=== PATIENT | female | born 1960 | race Caucasian/White ===

== ENCOUNTER 2017-05-30 13:46 | Inpatient (IN) | payer OTHER ==
[~2017-05-30 13:46] MED LIST: ISOVUE-370 76%-LOCM 1 ML ONE; Iopamidol 370 76% 50 ML VIAL FS ONE
[2017-05-30 14:48] LABS: Bilirubin Large (Negative); Blood, Urine Large (Negative); Clarity CLOUDY (Clear); Glucose, Urine (Dipstick) Negative (Negative); Leukocyte Small (Negative); Nitrite Negative (Negative); Protein, Urine (Dipstick) Trace mg/dL (Neg-Trace); Specific Gravity, Urine 1.016 (1.002-1.036); pH, Urine 6.5 (5.0-9.0)
[2017-05-30 14:53] LABS: Bacteria/HPF None Seen HPF (None Seen); Hyaline Casts/LPF 0-3 HYALINE CAST LPF (0-3 Hyaline); Pathc Cast-AUWi Flag 0.67 (0-2.49); RBC/HPF GREATER THAN 50-TNTC HPF (0-3); Squamous Epithelial 0-3 HPF (0-3)
[2017-05-30 14:59] LABS: #Lymphocytes 1.1 thou/uL (1.20-3.40); #Monocytes 0.5 thou/uL (0.11-0.59); #Neutrophils 7.3 thou/uL (1.40-6.50); %Basophils 0.2 % (0.0-1.0); %Eosinophils 0.2 % (0.0-10.0); %Lymphocytes 12.8 % (21.0-51.0); %Monocytes 5.5 % (0.0-10.0); %Neutrophils 81.4 % (42.0-75.0); Hemoglobin 15.1 g/dL (12.0-16.0); Mean Corpuscular HGB CONC 32.3 g/dL (32.0-36.0); Mean Corpuscular Hemoglobin 29.9 pg (27.0-31.0); Mean Corpuscular Volume 92.5 fl (81.0-99.0); Platelet Count 227 thou/uL (130-400); RBC Distribution Width 14.6 % (11.5-14.5); Red Blood Cell (RBC) Count 5.06 mill/uL (4.20-5.40); White Blood Cell (WBC) Count 8.9 thou/uL (4.8-10.8)
[2017-05-30 15:13] LABS: ALT (SGPT) 541 U/L (8-55); AST (SGOT) 334 U/L (5-34); Albumin 3.9 g/dL (3.5-5.0); Alkaline Phosphatase 259 U/L (40-150); Anion Gap 13 mmol/L (10-20); BUN (Urea Nitrogen) 8 mg/dL (9.8-20.1); Bilirubin, Total 7.7 mg/dL (0.2-1.2); Calc. Creatinine Clearance 0 mL/min (70-130); Calcium 9.9 mg/dL (7.8-10.44); Carbon Dioxide 28 mmol/L (22-29); Chloride 97 mmol/L (98-107); Estimated GFR-MDRD 89; Globulin 3.6 g/dL (2.4-3.5); Glucose 144 mg/dL (70-105); Potassium 3.7 mmol/L (3.5-5.1); Protein, Total 7.5 g/dL (6.0-8.3); Sodium 134 mmol/L (136-145)
[2017-05-30 15:28] LABS: Lipase 5466 U/L (8-78)
--- NOTE | 2017-05-30 17:45 | ULT ---
GALLBLADDER ULTRASOUND: 05/30/17 HISTORY: Right upper quadrant pain. Examination is limited due to body habitus. Real time imaging of the right upper quadrant shows an ec hogenic focus with shadowing within the gallbladder. There is also some minimal sludge. No gallbladde r wall thickening. The common duct is in the 5 to 6 mm range. Liver shows fatty change. Right kidney is normal in size and not obstructed. The pancreas is partiall y obscured. IMPRESSION: 1. Small gallstone also some minimal sludge within the gallbladder. 2. Fatty changes of the liver. POS: [facility]
[2017-05-30] MEDS ORDERED: Fentanyl 100 MCG/2 ML VIAL ONE ×2 (18:35→20:46)
[2017-05-30] MEDS ORDERED: Ondansetron HCl/PF 4 MG/2 ML Vial ONE ×2 (18:35→20:52)
[2017-05-30 18:50] LABS: INR-International Normal Ratio 0.9; Prothrombin Time 12.6 SEC (12.0-14.7)
[2017-05-30 18:51] LABS: PTT 28.1 SEC (22.9-36.1)
[2017-05-30 19:04] LABS: Acetaminophen Less than 6.0 mcg/mL (10.0-30.0)
[2017-05-30 19:26] LABS: HBCM Index 0.18 S/CO (0-0.79); HBSAg Index 0.16 S/CO (0-0.99); Hep A IgM AB Non-Reactive (NonReactive); Hep A IgM S/CO 0.08 S/CO (0-0.79); Hep B Surf Ag Non-Reactive S/CO (NonReactive); Hep C IgG Ab Non-Reactive (NonReactive); Hep C Index 0.12 S/CO (0-0.79); Hepatitis B Core IGM Abs Non-Reactive (NonReactive)
[2017-05-30] MEDS ORDERED: Guaifenesin DM 100-10/5 ML UDCUP PO PRN (20:14)
[2017-05-30] MEDS ORDERED: Promethazine HCl 25 MG/ML VIAL IM PRN (20:14)
[2017-05-30] MEDS ORDERED: Ondansetron HCl/PF 4 MG/2 ML Vial IVP PRN (20:14)
[2017-05-30] MEDS ORDERED: Dextrose 50% Abboject 50 ML SYRINGE SLOW IVP PRN (20:19)
[2017-05-30] MEDS ORDERED: Dextrose 5% in Water 1,000 ML IV PRN (20:19)
[2017-05-30] MEDS ORDERED: HumaLOG 300 UNITS/3 ML VIAL SC PRN (20:19)
[2017-05-30 20:36] LABS: Cardiac Risk 9.6 (Less than 4.5)
[2017-05-30] MEDS: Famotidine/PF 20 mg/2ml Vial SLOW IVP SCH (23:45)
--- NOTE | 2017-05-31 00:31 | HP ---
REASON FOR ADMISSION: Likely gallstone pancreatitis. HISTORY OF PRESENTING ILLNESS: Patient gives history of right upper quadrant abdominal pain from two weeks, this has been off and on colicky in nature. From yesterday, this got worse to the point, it was a constant pain and was lasting longer. She has been having loss of appetite and could not eat o r drink with dry heaving from yesterday. She got concerned that she is dehydrated, [facility]. On arrival, her labs done here shows elevated LFTs with total bilirubin of 7.7 and her lipase of 5466. PAST MEDICAL AND SURGICAL HISTORY: Patient apparently is a prediabetic, does not take any medication s. She has high cholesterol and does not take any medicines for that. She has had a recent incision and drainage of a cyst on the scalp done last Monday. CURRENT MEDICATIONS: Keflex 500 mg three times daily, which was given after I&D of her scalp cyst. ALLERGIES: To CONTROL PILLS. PERSONAL HISTORY: Quit smoking more than 10 years ago, prior to which has smoked half pack a day for nearly 10 years. Does not abuse alcohol or drugs. She is an procurement accountant. FAMILY HISTORY: Mom of ovarian cancer at the age of 68 years. Father is alive and is 89 years old now. REVIEW OF SYSTEMS: The following complete review of systems was negative, unless otherwise mentioned in the HPI or below: Constitutional: Weight loss or gain, ability to conduct usual activities. Skin: Rash, itching. Eyes: Double vision, pain. ENT/Mouth: Nose bleeding, neck stiffness, pain, tenderness. Cardiovascular: Palpitations, dyspnea on exertion, orthopnea. Respiratory: Shortness of breath, wheezing, cough, hemoptysis, fever or night sweats. Gastrointestinal: Poor appetite, abdominal pain, heartburn, nausea, vomiting, constipation, or diarr hea. Genitourinary: Urgency, frequency, dysuria, nocturia. Musculoskeletal: Pain, swelling. Neurologic/Psychiatric: Anxiety, depression. Allergy/Immunologic: Skin rash, bleeding tendency. PHYSICAL EXAMINATION: GENERAL: Patient is a 57-year-old female who is currently not in any acute distress. VITAL SIGNS: Blood pressure 172/80 on arrival, pulse 84 per minute, respiratory rate 18 per minute, temperature was 99.1 degrees Fahrenheit, saturating 94% on room air. NECK: Supple, no elevated JVD. HEENT: Extraocular muscles intact. Pupils reacting to light. Oral cavity, mucous membranes are [address] st. No exudates or congestion. CARDIOVASCULAR SYSTEM: S1, S2 heard. Regular rhythm. RESPIRATORY SYSTEM: Air entry 1+ bilateral. No rales or rhonchi. ABDOMEN: There is mild tenderness on deep palpation in the epigastric area. No rebound or guarding. Bowel sounds are heard. EXTREMITIES: No peripheral edema or calf tenderness. VASCULAR SYSTEM: Peripheral pulses 1+ bilateral. No ischemic ulcerations or gangrene. CENTRAL NERVOUS SYSTEM: No gross focal deficits seen. Patient is alert, awake, oriented well. PSYCHIATRIC: Patient's mood is euthymic. No hallucinations or delusions. LABORATORY AND X-RAY FINDINGS: Sodium 134, serum bicarbonate 28, BUN 8, creatinine 0.6, glucose 144. Total bilirubin 7.7, direct bilirubin is 5.5, AST 334, ALT 541, alkaline phosphatase 259, albumin i s 3.9. Lipase is 5466. Acute hepatitis panel was negative. PT/INR 12 and 0.9, PTT 28. White count of 8, H&H 15 and 46, platelet count 227, MCV is 92 with 81% neutrophils. Ultrasound of the abdomen done shows small gallstone with minimal sludge within the gallbladder, fatty change in the liver, com mon duct was 5-6 mm range. The pancreas was partially obscured. CLINICAL IMPRESSION AND PLAN: Patient will be admitted to medical floor for likely gallstone pancrea titis. Her lipase is elevated more than 5000. She will be kept n.p.o. We will aggressively hydrate her with normal saline at 150 mL per hour. She will be on Demerol p.r.n. for pain. We will obtain a CT of the abdomen and pelvis with and without contrast. I have spoken to Dr. Jorje Hernández for alyce roenterology and Dr. Messer who is information technology data analyst for general surgery will be consulted. We will obtain a lipid profile stat to see for triglyceride level. She will also be on diabetes, hyperglycemia protoc ol with mild dose of Humalog coverage q.6 hourly. We will follow up on the CAT scan and continue to closely monitor for medical floor.
--- NOTE | 2017-05-31 00:33 | CT ---
EXAM ABDOMEN CT WITH CONTRAST PELVIC CT WITH CONTRAST 05/30/17 HISTORY: Pancreatitis. Abdominal pain. Nausea. Vomiting. Cholelithiasis. COMPARISON: None. TECHNIQUE: Abdomen and pelvic CT performed with IV contrast. Enteric contrast was also administered. Coronal ref ormatted images are submitted for interpretation. FINDINGS: ABDOMEN CT: Lung bases are clear. Heart size is normal. No significant pericardial fluid. The descending thoracic aorta and abdominal aorta are of normal caliber. No periaortic fat stranding. Symmetric attenuation of the psoas muscle. Intra and extrahepatic portal vein is patent. There is prominence of the intrahepatic biliary system. There is no evidence of cholecystitis. There is evidence of choledocholithiasis. The common bile duct is markedly dilated. There is hyperdensity w ithin the lumen of the common bile duct suggesting multifocal gallstones. Common bile duct is 1.2 cm. The spleen and adrenal glands have appropriate enhancement. Symmetric enhancement of the kidneys. Cameron aterally, no obstructive uropathy. Minimal peripancreatic fat stranding at the head and the proximal pancreatic body. Correlate clinical ly for pancreatitis. No evidence of a cyst, pseudocyst or abscess. No significant pancreatic necrosis . No gastrohepatic, retrocrural or periportal lymphadenopathy. No mesenteric mass, lymphadenopathy, free air or free fluid. There is a ventral abdominal wall hernia containing mesenteric fat. There is also dehiscence of the anterior abdominal wall. No evidence of bowel obstruction. Mild inflammatory change involving the second portion of the duoden um, likely reactive secondary to choledocholithiasis. Ileocecal junction is normal. Normal caliber ap pendix. Scattered diverticulosis of the colon. No diverticulitis. PELVIC CT: No mass, lymphadenopathy, free air of free fluid. Urinary bladder and uterus/adnexal structures are u nremarkable. No lytic or blastic lesions of the osseous structure. IMPRESSION: 1. Cholelithiasis. 2. Dilatation of the common bile duct secondary to extensive choledocholithiasis. GI consultatio n is recommended for possible ERCP and removal of common bile duct stones. 3. Minimal inflammatory change of the proximal pancreas. Correlate clinically for pancreatitis. Reactive changes to the adjacent duodenum are noted. POS: [facility]
[2017-05-31] MEDS ORDERED: Labetalol HCl 100 MG/20 ML VIAL SLOW IVP PRN (01:19)
[2017-05-31] MEDS: Sodium Chloride 0.9% 1,000 ML IV SCH ×5 (01:50→20:15)
[2017-05-31] MEDS: Meperidine HCl/PF 25 MG/ML VIAL SLOW IVP PRN ×2 (02:14→10:27)
[2017-05-31 06:52] LABS: ALT (SGPT) 487 U/L (8-55); AST (SGOT) 305 U/L (5-34); Albumin 3.5 g/dL (3.5-5.0); Alkaline Phosphatase 239 U/L (40-150); Anion Gap 13 mmol/L (10-20); BUN (Urea Nitrogen) 7 mg/dL (9.8-20.1); Bilirubin, Direct 6.1 mg/dL (0.1-0.3); Bilirubin, Total 8.1 mg/dL (0.2-1.2); Calc. Creatinine Clearance 0 mL/min (70-130); Calcium 9.3 mg/dL (7.8-10.44); Carbon Dioxide 24 mmol/L (22-29); Chloride 102 mmol/L (98-107); Estimated GFR-MDRD Greater than 90; Glucose 135 mg/dL (70-105); Protein, Total 6.7 g/dL (6.0-8.3); Sodium 135 mmol/L (136-145)
[2017-05-31 06:53] LABS: Hemoglobin 13.7 g/dL (12.0-16.0); Mean Corpuscular HGB CONC 32.4 g/dL (32.0-36.0); Mean Corpuscular Hemoglobin 30.2 pg (27.0-31.0); Mean Corpuscular Volume 93.2 fl (81.0-99.0); Mean Platelet Volume 8.1 fL (7.4-10.4); Platelet Count 195 thou/uL (130-400); RBC Distribution Width 14.6 % (11.5-14.5); Red Blood Cell (RBC) Count 4.54 mill/uL (4.20-5.40); White Blood Cell (WBC) Count 9.4 thou/uL (4.8-10.8)
[2017-05-31 07:05] LABS: Lipase 2715 U/L (8-78)
[2017-05-31 07:24] LABS: Band 8 % (5-11); Lymphocytes 10 % (21-51); MDiff Complete? YES; Monocytes 3 % (0-10); Neutrophil 77 % (42-75); Reactive Lymphocytes 2 % (0-10)
[2017-05-31] MEDS: Amlodipine 10 MG TAB PO SCH (08:54)
[2017-05-31] MEDS: Metoprolol Tartrate 25 MG TAB PO SCH ×2 (08:55→20:52)
[2017-05-31] MEDS: Enoxaparin Sodium 40 MG/0.4 ML SYRINGE SC SCH (08:55)
[2017-05-31] MEDS: Famotidine/PF 20 mg/2ml Vial SLOW IVP SCH ×2 (08:55→20:52)
--- NOTE | 2017-05-31 12:01 | PDOC.PN ---
- Subjective Encounter Start Date: 05/31/17 Encounter Start Time: 10:25 Subjective: has off and on epigastric pain, no nausea -: no sob - Objective Resuscitation Status: Resuscitation Status FULL:Full Resuscitation MAR Reviewed: Yes Vital Signs & Weight: Vital Signs (12 hours) Temp Pulse Resp BP BP Pulse Ox 05/31/17 08:57 99.0 F 113 H 20 130/62 97 05/31/17 08:54 113 H 130/62 05/31/17 08:00 99.0 F 113 H 20 05/31/17 04:00 89 19 170/86 H 05/31/17 01:46 97 190/88 H 05/31/17 00:00 98.8 F 99 19 190/88 H I&O: 05/30/17 05/31/17 06/01/17 06:59 06:59 06:59 Intake Total 1350 Output Total 500 Balance 850 Result Diagrams: 05/31/17 06:08 05/31/17 06:08 Additional Labs: Accuchecks 05/31/17 05/30/17 06:43 23:51 POC Glucose 131 H 118 H Phys Exam - Physical Examination HEENT: PERRLA, moist MMs Neck: no JVD, supple Respiratory: no wheezing, no rales Cardiovascular: RRR, no significant murmur Gastrointestinal: soft, no distention, positive bowel sounds mild tenderness in epigastric area, no rebound or rigidity Musculoskeletal: no edema, pulses present Neurological: non-focal, moves all 4 limbs Psychiatric: normal affect, A&O x 3 Dx/Plan (1) Choledocholithiasis with acute cholecystitis Code(s): K80.42 - CALCULUS OF BILE DUCT W ACUTE CHOLECYSTITIS W/O OBSTRUCTION Status: Acute (2) Gallstone pancreatitis Code(s): K85.10 - BILIARY ACUTE PANCREATITIS WITHOUT NECROSIS OR INFECTION Status: Acute (3) Obesity Code(s): E66.9 - OBESITY, UNSPECIFIED Status: Chronic (4) HTN (hypertension) Code(s): I10 - ESSENTIAL (PRIMARY) HYPERTENSION Status: Chronic Qualifiers: Hypertension type: essential hypertension Qualified Code(s): I10 - Essential (primary) hypertension (5) Dyslipidemia Code(s): E78.5 - HYPERLIPIDEMIA, UNSPECIFIED Status: Acute - Plan for ERCP today, iv fluids at 150mls/hr, demerol prn -: lap hannah when stable, ?am -: add lipitor and fish oil -: lopressor and norvasc for htn (likely due to pain and anxiety) -: to amb in room and hallway * . Review of Systems - Medications/Allergies Allergies/Adverse Reactions: Allergies Allergy/AdvReac Type Severity Reaction Status Date / Time control Allergy Uncoded 05/30/17 20:42 Medications: Current Medications Acetaminophen (Tylenol) 650 mg PO Q4H PRN PRN Reason: Headache/Fever or Pain Amlodipine Besylate (Norvasc) 10 mg PO DAILY [facility] Last Admin: 05/31/17 08:54 Dose: 10 mg Dextrose/Water (Dextrose 50%) 25 gm SLOW IVP PRN PRN PRN Reason: Hypoglycemia Enoxaparin Sodium (Lovenox) 40 mg SC 0900 [facility] Last Admin: 05/31/17 08:55 Dose: 40 mg Famotidine (Pepcid) 20 mg SLOW IVP Q12HR [facility] Last Admin: 05/31/17 08:55 Dose: 20 mg Glucagon (Glucagon) 1 mg IM PRN PRN PRN Reason: Hypoglycemia Guaifenesin/Dextromethorphan (Robitussin Dm) 15 ml PO Q4H PRN PRN Reason: Cough Sodium Chloride (Normal Saline 0.9%) 1,000 mls @ 150 mls/hr IV .Q6H40M [facility] Last Admin: 05/31/17 10:26 Dose: Not Given Dextrose/Water (D5w) 1,000 mls @ 0 mls/hr IV .Q0M PRN; As Directed PRN Reason: Hypoglycemia Insulin Human Lispro (Humalog) 0 units SC .MILD SLIDING SCALE PRN PRN Reason: Mild Correctional Scale Labetalol HCl (Normodyne) 10 mg SLOW IVP Q4H PRN PRN Reason: SBP Greater Than 170 Last Admin: 05/31/17 01:46 Dose: 10 mg Meperidine HCl (Demerol) 25 mg SLOW IVP Q3H PRN PRN Reason: Severe Pain (7-10) Last Admin: 05/31/17 10:27 Dose: 25 mg Metoprolol Tartrate (Lopressor) 25 mg PO BID [facility] Last Admin: 05/31/17 08:55 Dose: Not Given Ondansetron HCl (Zofran) 4 mg IVP Q6H PRN PRN Reason: Nausea/Vomiting Last Admin: 05/31/17 10:27 Dose: 4 mg Promethazine HCl (Phenergan) 25 mg IM Q4H PRN PRN Reason: Nausea/Vomiting Sodium Chloride (Flush - Normal Saline) 10 ml IVF Q12HR [facility] Last Admin: 05/31/17 08:55 Dose: Not Given Sodium Chloride (Flush - Normal Saline) 10 ml IVF PRN PRN PRN Reason: Saline Flush
[2017-05-31 12:06] VITALS: BMI 58.0
[2017-05-31] MEDS ORDERED: Iothalamate Meglumine 60% 50 ML VIAL FS ONE (12:39)
[2017-05-31] MEDS ORDERED: Midazolam HCl 2 mg/2 ml Vial ONE (12:45)
[2017-05-31] MEDS ORDERED: Fentanyl 100 MCG/2 ML VIAL ONE (12:45)
[2017-05-31] MEDS ORDERED: PHENYLEPHRINE-NS 100 MCG/ML 10 ML SYRINGE ONE (12:53)
[2017-05-31] MEDS ORDERED: Succinylcholine Chloride 20 MG/ML 10 ml SYRINGE FS ONE (12:53)
[2017-05-31] MEDS ORDERED: Lidocaine 1% PF 5 ML VIAL ONE (12:53)
[2017-05-31] MEDS ORDERED: PROPOFOL 200 MG/20 ML VIAL ONE (12:53)
[2017-05-31] MEDS ORDERED: Ondansetron HCl/PF 4 MG/2 ML Vial ONE (12:53)
[2017-05-31] MEDS ORDERED: Indomethacin 50 MG SUPP ONE (13:14)
[2017-05-31] MEDS ORDERED: Indomethacin 50 MG SUPP PR SCH (13:15)
--- NOTE | 2017-05-31 13:29 | CON ---
DATE OF CONSULTATION: 05/31/2017 REASON FOR CONSULTATION: Choledocholithiasis. CONSULTING PHYSICIAN: Beckie Hanna M.D. HISTORY OF PRESENT ILLNESS: The patient is a 57-year-old female with past medical history of hyperlipidemia and impaired fasting glucose, presenting with complaints of right upper quadrant abdominal pain. She states that over the last 2 weeks she had the acute onset of right upper quadrant abdominal pain that has been constant in nature with waxing and waning severity. However, over the last 24-48 hours, she has had a sudden increase in this pain with radiation of the pain to the mid epigastric and right lower quadrant. Associated with this pain was increased nausea, vomiting with nonbloody emesis, anorexia and yellowing of her skin and her eyes. This prompted her to seek medical attention at [facility] where upon routine lab evaluation, she was noted to have significantly elevated LFTs including a total bilirubin of 7.7 and a lipase of 5466. Currently, she says that her abdominal pain is better, but still present. She denies any further vomiting, but does have mild nausea at the current time. REVIEW OF SYSTEMS: A 12-category review of systems was obtained with all responses negative except for the pertinent positives as listed in the HPI. PAST MEDICAL HISTORY: Hyperlipidemia and impaired fasting glucose. PAST SURGICAL HISTORY: Recent I&D of scalp cyst done in 04/2017. SOCIAL HISTORY: Denies any tobacco, alcohol or illicit drug use. FAMILY HISTORY: Ovarian cancer (mother diagnosed at the age of 68), no GI malignancy. ALLERGIES: CONTROL PILLS (unknown reaction). PHYSICAL EXAMINATION: VITAL SIGNS: Temperature 99, pulse 113, blood pressure 130/62, respiratory rate 20 and satting 97% on room air. GENERAL: Patient in no acute distress. Alert and oriented x4. HEENT: Pupils equal, round and reactive to light. Extraocular movements intact. NECK: Supple. No JVD noted. CARDIOVASCULAR: Tachycardic rate with normal rhythm. No discernible murmurs, gallops or rubs. RESPIRATORY: Clear to auscultation bilaterally with no discernible wheezes or rales. ABDOMEN: Normoactive bowel sounds, soft and nondistended. Tenderness to palpation in the midepigastric right upper quadrant and right lower quadrant regions upon both light and deep palpation. No hepatosplenomegaly noted. EXTREMITIES: No cyanosis, clubbing or edema. LABORATORY STUDIES: CBC with a white blood cell count of 9.4, hemoglobin 13.7, hematocrit 42.3 and platelets 195. Chemistry with a sodium of 135, potassium 4 , chloride 102, carbon dioxide 24, BUN 7, creatinine 0.61, glucose 135, AST 305 , ALT 487, alkaline phosphatase 237, total bilirubin 8.1, lipase 2715, albumin 3.5 and INR 0.9. Acute hepatitis panel negative. IMAGING STUDIES: Right upper quadrant ultrasound obtained on 05/30/2017 showing an echogenic focus with shadowing within the gallbladder consistent with small gallstone with minimal sludge. No gallbladder wall thickening. The common bile duct was 5-[address] abdomen and pelvis obtained on 2017 showed choledocholithiasis with multifocal gallstones within the common bile duct. Common bile duct was dilated to approximately 1.2 cm in diameter. Minimal peripancreatic fat stranding was noted along with a fat containing ventral hernia. ASSESSMENT AND PLAN: The patient is a 57-year-old female with past medical history of hyperlipidemia, impaired fasting glucose and morbid obesity presenting with cholelithiasis and choledocholithiasis. Choledocholithiasis The patient is presenting with a 2-week history of right upper quadrant/ midepigastric abdominal pain that has been constant in nature with waxing and waning severity. The abdominal pain was associated with increased nausea and vomiting with nonbloody emesis. Upon evaluation in the [place] [facility], she was noted to have significantly elevated liver function tests and lipase concerning for an obstructive process at the ampulla. Imaging with RUQ ultrasound showed cholelithiasis without significant dilation of the CBD, but follow up with CT abdomen and pelvis showed dilation of the common bile duct at 1.2 cm with multiple filling defects consistent with choledocholithiasis. RECOMMENDATIONS: 1. We will plan for urgent ERCP today for stone extraction. 2. We will place patient on Zosyn as part of antibiotic prophylaxis related to possible ascending cholangitis. 3. Will plan for rectal indomethacin prior to ERCP for pancreatitis prophylaxis. 3. Would consult General Surgery for evaluation related to cholecystectomy that will be needed after ERCP and stone extraction. ERIBERTO
[2017-05-31] MEDS ORDERED: HYDROmorphone 2 MG/ML VIAL SLOW IVP PRN (13:55)
[2017-05-31] MEDS ORDERED: Morphine Sulfate 2 MG/ML SYRINGE SLOW IVP PRN (13:55)
[2017-05-31] MEDS ORDERED: Promethazine HCl 25 MG/ML VIAL SLOW IVP PRN (13:55)
[2017-05-31] MEDS ORDERED: Meperidine HCl/PF 25 MG/ML VIAL SLOW IVP PRN (13:55)
--- NOTE | 2017-05-31 16:02 | OP ---
DATE OF PROCEDURE: 05/31/2017 DESCRIPTION OF PROCEDURE: Endoscopic retrograde cholangiopancreatography with balloon sweep and stone extraction. INDICATION: Choledocholithiasis. TOOL DESIGNER APPRENTICE ENDOSCOPIST: Dr. Neville Patel MD DESCRIPTION OF PROCEDURE: After the risks, and benefits were explained to the patient including risks of bleeding, infection, perforation, reactions to anesthesia and/or pain and pancreatitis, informed consent was obtained. The patient was then taken to the endoscopy suite with general anesthesia induced by anesthesiologist. The standard duodenoscope was then advanced through the mouth with intubation of the esophagus, stomach, and duodenum with the findings listed below. The patient tolerated the procedure well without any periprocedural complications. FINDINGS: Limited evaluation of the esophagus and stomach were performed, with no gross abnormalities within the body of the stomach or esophagus. DUODENUM: Upon entry into the duodenum, the ampulla was located. The ampulla was generous and bulbous in size with no active bleeding or purulence coming from the orifice itself. Using a sphincterotome, the ampulla was then cannulated with adequate visualization of the common bile duct due to instillation of contrast under fluoroscopy. After confirmation of the position was achieved, a guidewire was then placed to provide stability within the location itself. Using the sphincterotome, a generous sphincterotomy was then performed with no bleeding noted during or after this maneuver. The sphincterotome was then removed and exchanged for a 15 mm balloon which was then advanced into the common bile duct. Using occlusion cholangiogram, there were no noted stones seen within the duct itself under fluoroscopy and the common bile duct itself measured approximately 1-1.5 cm in size. Multiple balloon sweeps were then performed with no visualized stones retrieved from the common bile duct. There were also multiple stones noted within the cystic duct upon occlusion cholangiogram. The balloon was then removed along with guidewire , with guzmán bile seen emanating from the ampulla itself. All equipment was then removed with the patient then transferred to recovery area in satisfactory condition. IMPRESSION: 1. Increased dilation of the common bile duct with multiple balloon sweeps, negative for discernible stone. 2. Multiple stones were seen within the cystic duct which could exhibit a Mirizzi effect on the common bile duct. RECOMMENDATIONS: 1. Follow with primary inpatient team. 2. Would trend hemoglobin and hematocrit and transfuse as necessary to maintain hemoglobin and hematocrit of 7/21. 3. Would continue antibiotics (Zosyn) for prophylaxis against cholangitis. 4. Would continue to monitor for signs of worsening of pancreatitis/post-ERCP pancreatitis 5. Would continue IV fluid administration as you are doing given the pancreatitis noted upon admission. 6. Would defer to General Surgery Service for definitive cholecystectomy with attention made to the cystic duct and stones contained. ERIBERTO
--- NOTE | 2017-05-31 16:17 | CON ---
DATE OF CONSULTATION: 05/31/2017 REASON FOR CONSULTATION: Abdominal pain. HISTORY OF PRESENT ILLNESS: Ms. Dumont is a 57-year-old woman with a 2-3 week history of right upper quadrant and epigastric pain, nausea and vomiting. This has been episodic, but worsening and for the day or two before she came into the hospital, she was unable to keep anything down, even water. She states that about 2 weeks ago, she noticed that there was a slight yellow tinge to her eyes and that has persisted and her urine has also been very dark in color. She denies any fevers or chills. She states that the pain is much better since being admitted to the hospital. PAST MEDICAL HISTORY: Prediabetes. She states that her blood pressure was high in the emergency room, but usually runs low. Gallstones diagnosed in 2002 for which the patient declined surgery and decided on herbal supplements. PAST SURGICAL HISTORY: None. FAMILY HISTORY: Ovarian cancer in her mother who of this at 68 years of age and various types of cancer on her father's side and a maternal aunt which she thinks was cervical cancer. OUTPATIENT MEDICATIONS: None chronic. Patient was recently started on Keflex for a scalp cyst, which was I&D'd. ALLERGIES: Adverse drug reaction to [employer]. REVIEW OF SYSTEMS: Ten system review of systems is negative except per HPI. SOCIAL HISTORY: She is a former smoker who quit over a decade ago. Does not drink to excess or use illicit drugs. INPATIENT MEDICATIONS: Include amlodipine, Lovenox, Pepcid, sliding scale insulin, metoprolol, and multiple PRNs. PHYSICAL EXAMINATION: VITAL SIGNS: T-max 99.6, T-current 99.0, heart rate has ranged from 89-113, respirations 20, 97% saturated on room air, blood pressure 130/62, earlier was as high as 198/88. GENERAL: Reveals a morbidly obese woman, in no acute distress. She is slightly icteric and has a sallow cast to her skin. HEENT: Unremarkable. NECK: Supple, without lymphadenopathy or thyroid nodules. HEART: Regular in its rate and rhythm without murmurs, rubs or gallops. LUNGS: Clear to auscultation bilaterally. She denies pain with deep inspiration. CLINICAL BREAST: No palpable dominant masses bilaterally, although she has ectopic tissue in the lateral breast bilaterally, which is symmetric. No skin changes, nipple discharge or axillary lymphadenopathy. ABDOMEN: Soft and nondistended. She has reducible umbilical hernia. She has mild tenderness in the epigastric area without rigidity, rebound or guarding. No palpable masses or hernias. EXTREMITIES: Warm and well perfused without edema. NEUROLOGIC: No focal deficits. PSYCHIATRIC: Alert, oriented, and appropriate. LABORATORY DATA AND IMAGING: White count is normal at 9.4. She does not have any anemia, platelets are 195. Electrolytes are unremarkable, but LFTs are diffusely elevated. Total bilirubin is 8.1 with 86.1 direct component. AST and ALT are 305 and 487 and alkaline phosphatase is 239. Her lipase is 2715, which is down from 6466 at admission. Triglycerides are normal at 111, although her cholesterol is high at 421, blood glucoses have ranged from 118- 144. Gallbladder ultrasound and abdominal CT images are reviewed and I agree with the written report. The patient has some stones in her gallbladder and her common bile duct is dilated with calcified stones visible on the CAT scan. The head of her pancreas is mildly inflamed as well. ASSESSMENT: Gallstone pancreatitis and choledocholithiasis. Gastroenterology has been consulted and I anticipate that they will perform ERCP. Once she has recovered from this and her pancreatitis continues to resolve, we will plan on laparoscopic cholecystectomy. The procedure of laparoscopic cholecystectomy and its inherent risks were discussed in detail with the patient. These risks include but are not limited to bleeding, infection, risks of anesthesia, damage to nearby structures including bile duct, need for open operation or other procedures. She understands and accepts these risks and wishes to proceed. She has an umbilical hernia. This can be repaired primarily with sutures or with mesh. The relative pros and cons of each approach were discussed with the patient and she declines mesh placement, stating that she wants to keep things as natural as possible. She does understand that she is at extremely high risk for recurrence due to her obesity. In addition, the patient is at potentially elevated risk for breast cancer, given her family history of ovarian cancer. She does not really have a lot of details of other family members as her father is an only child. Her father does not have any sisters and she is uncertain what type of cancer her maternal aunt had, although she thinks it was cervical and says she was treated with radiation. I offered to refer her to a genetic counselor and she is willing to do that; however, she steadfastly refuses to be scheduled for a mammogram, which I strongly recommended. She does not have a doctor whom she sees on a regular basis and I did encourage her to at least establish a primary care physician for yearly physical examinations and breast exam and she is open to that suggestion. ERIBERTO
[2017-05-31] MEDS: Piperacillin/Tazobactam 4.5 GM in Sodium Chloride 0.9% 100 ML IVPB SCH ×2 (17:30→23:14)
[2017-05-31] MEDS: Fish Oil 1,000 MG CAP PO SCH (20:52)
[2017-05-31] MEDS: Atorvastatin Calcium 20 MG TAB PO SCH ×2 (20:52→21:09)
[2017-06-01] MEDS: Sodium Chloride 0.9% 1,000 ML IV SCH ×3 (03:30→21:29)
[2017-06-01] MEDS: Piperacillin/Tazobactam 4.5 GM in Sodium Chloride 0.9% 100 ML IVPB SCH ×3 (05:58→21:35)
[2017-06-01 08:01] LABS: #Basophils 0.1 thou/uL (0.0-0.2); #Eosinphils 0.1 thou/uL (0.0-0.7); #Lymphocytes 1.7 thou/uL (1.20-3.40); #Monocytes 0.5 thou/uL (0.11-0.59); %Basophils 0.7 % (0.0-1.0); %Eosinophils 0.6 % (0.0-10.0); %Lymphocytes 18.4 % (21.0-51.0); %Monocytes 5.7 % (0.0-10.0); %Neutrophils 74.6 % (42.0-75.0); Hemoglobin 12.7 g/dL (12.0-16.0); Mean Corpuscular HGB CONC 32.9 g/dL (32.0-36.0); Mean Corpuscular Hemoglobin 31.3 pg (27.0-31.0); Mean Corpuscular Volume 95.1 fl (81.0-99.0); Mean Platelet Volume 8.2 fL (7.4-10.4); Platelet Count 165 thou/uL (130-400); RBC Distribution Width 14.6 % (11.5-14.5); Red Blood Cell (RBC) Count 4.06 mill/uL (4.20-5.40); White Blood Cell (WBC) Count 9.4 thou/uL (4.8-10.8)
[2017-06-01 08:23] LABS: ALT (SGPT) 359 U/L (8-55); AST (SGOT) 162 U/L (5-34); Albumin 3.3 g/dL (3.5-5.0); Alkaline Phosphatase 194 U/L (40-150); Anion Gap 12 mmol/L (10-20); BUN (Urea Nitrogen) 11 mg/dL (9.8-20.1); Bilirubin, Total 3.2 mg/dL (0.2-1.2); Calc. Creatinine Clearance 207 mL/min (70-130); Calcium 8.8 mg/dL (7.8-10.44); Carbon Dioxide 24 mmol/L (22-29); Chloride 107 mmol/L (98-107); Estimated GFR-MDRD Greater than 90; Globulin 2.9 g/dL (2.4-3.5); Glucose 109 mg/dL (70-105); Lipase 140 U/L (8-78); Protein, Total 6.2 g/dL (6.0-8.3); Sodium 139 mmol/L (136-145)
[2017-06-01] MEDS: Famotidine/PF 20 mg/2ml Vial SLOW IVP SCH ×2 (09:03→21:28)
[2017-06-01] MEDS: Amlodipine 10 MG TAB PO SCH (10:57)
[2017-06-01] MEDS: Enoxaparin Sodium 40 MG/0.4 ML SYRINGE SC SCH (10:58)
[2017-06-01] MEDS: Metoprolol Tartrate 25 MG TAB PO SCH ×2 (10:59→21:35)
--- NOTE | 2017-06-01 11:56 | PDOC.PN ---
- Subjective Encounter Start Date: 06/01/17 Encounter Start Time: 08:55 Subjective: no abd pain, has some throat pain from intubation yesterday - Objective Resuscitation Status: Resuscitation Status FULL:Full Resuscitation MAR Reviewed: Yes Vital Signs & Weight: Vital Signs (12 hours) Temp Pulse Resp BP Pulse Ox 06/01/17 11:30 98.8 F 82 20 129/61 91 L 06/01/17 10:57 79 06/01/17 08:20 98.7 F 79 20 93 L 06/01/17 07:30 98.7 F 79 20 125/60 93 L Weight Admit Weight 307 lb Weight 307 lb I&O: 05/31/17 06/01/17 06/02/17 06:59 06:59 06:59 Intake Total 1350 Output Total 500 Balance 850 Result Diagrams: 06/01/17 07:34 06/01/17 07:34 Additional Labs: Accuchecks 06/01/17 05/31/17 05/31/17 06:01 23:31 12:26 POC Glucose 113 H 114 H 119 H Phys Exam - Physical Examination HEENT: PERRLA, moist MMs Neck: no JVD, supple Respiratory: no wheezing, no rales Cardiovascular: RRR, no significant murmur Gastrointestinal: soft, non-tender, no distention, positive bowel sounds Musculoskeletal: no edema, pulses present Neurological: non-focal, moves all 4 limbs Psychiatric: A&O x 3 Dx/Plan (1) Choledocholithiasis with acute cholecystitis Code(s): K80.42 - CALCULUS OF BILE DUCT W ACUTE CHOLECYSTITIS W/O OBSTRUCTION Status: Acute Comment: s/p ERCP with extraction and sphincterotomy 05/31/2017 (2) Gallstone pancreatitis Code(s): K85.10 - BILIARY ACUTE PANCREATITIS WITHOUT NECROSIS OR INFECTION Status: Acute (3) Obesity Code(s): E66.9 - OBESITY, UNSPECIFIED Status: Chronic (4) HTN (hypertension) Code(s): I10 - ESSENTIAL (PRIMARY) HYPERTENSION Status: Chronic Qualifiers: Hypertension type: essential hypertension Qualified Code(s): I10 - Essential (primary) hypertension (5) Dyslipidemia Code(s): E78.5 - HYPERLIPIDEMIA, UNSPECIFIED Status: Acute - Plan lap hannah per gen surgery advice -: lft's and lipase is coming down to baseline -: gentle iv hydration -: zosyn, lipitor, fish oil and small dose lopressor -: htn and dm is stable * . Review of Systems - Medications/Allergies Allergies/Adverse Reactions: Allergies Allergy/AdvReac Type Severity Reaction Status Date / Time control Allergy Uncoded 05/30/17 20:42 Medications: Current Medications Acetaminophen (Tylenol) 650 mg PO Q4H PRN PRN Reason: Headache/Fever or Pain Amlodipine Besylate (Norvasc) 10 mg PO DAILY [facility] Last Admin: 06/01/17 10:57 Dose: Not Given Atorvastatin Calcium (Lipitor) 20 mg PO HS [facility] Last Admin: 05/31/17 21:09 Dose: Not Given Dextrose/Water (Dextrose 50%) 25 gm SLOW IVP PRN PRN PRN Reason: Hypoglycemia Enoxaparin Sodium (Lovenox) 40 mg SC 0900 [facility] Last Admin: 06/01/17 10:58 Dose: Not Given Famotidine (Pepcid) 20 mg SLOW IVP Q12HR [facility] Last Admin: 06/01/17 09:03 Dose: 20 mg Fish Oil (Fish Oil) 1,000 mg PO [facility] Last Admin: 05/31/17 20:52 Dose: 1,000 mg Glucagon (Glucagon) 1 mg IM PRN PRN PRN Reason: Hypoglycemia Guaifenesin/Dextromethorphan (Robitussin Dm) 15 ml PO Q4H PRN PRN Reason: Cough Sodium Chloride (Normal Saline 0.9%) 1,000 mls @ 150 mls/hr IV .Q6H40M [facility] Last Admin: 06/01/17 10:53 Dose: 1,000 mls Dextrose/Water (D5w) 1,000 mls @ 0 mls/hr IV .Q0M PRN; As Directed PRN Reason: Hypoglycemia Piperacillin Sod/Tazobactam (Sod 4.5 gm/ Sodium Chloride) 100 mls @ 200 mls/hr IVPB Q8HR [facility] Last Admin: 06/01/17 05:58 Dose: 100 mls Insulin Human Lispro (Humalog) 0 units SC .MILD SLIDING SCALE PRN PRN Reason: Mild Correctional Scale Labetalol HCl (Normodyne) 10 mg SLOW IVP Q4H PRN PRN Reason: SBP Greater Than 170 Last Admin: 05/31/17 01:46 Dose: 10 mg Meperidine HCl (Demerol) 25 mg SLOW IVP Q3H PRN PRN Reason: Severe Pain (7-10) Last Admin: 05/31/17 10:27 Dose: 25 mg Metoprolol Tartrate (Lopressor) 25 mg PO BID [facility] Last Admin: 06/01/17 10:59 Dose: Not Given Ondansetron HCl (Zofran) 4 mg IVP Q6H PRN PRN Reason: Nausea/Vomiting Last Admin: 05/31/17 10:27 Dose: 4 mg Promethazine HCl (Phenergan) 25 mg IM Q4H PRN PRN Reason: Nausea/Vomiting Sodium Chloride (Flush - Normal Saline) 10 ml IVF Q12HR [facility] Last Admin: 06/01/17 10:54 Dose: Not Given Sodium Chloride (Flush - Normal Saline) 10 ml IVF PRN PRN PRN Reason: Saline Flush
--- NOTE | 2017-06-01 12:30 | PRG ---
DATE OF SERVICE: 06/01/2017 REASON FOR CONSULTATION: Choledocholithiasis, now status post ERCP. SUBJECTIVE: Overnight, the patient with improvement of her abdominal pain and resting comfortably th is morning. No further complaints of nausea, vomiting, fevers, chills, shortness of breath, diarrhea or constipation. She has been seen by the general surgeons at this time and is planned for a schedu le either today or tomorrow. MEDICATIONS: Reviewed. PHYSICAL EXAMINATION: VITAL SIGNS: Temperature 98.8, pulse 82, blood pressure 129/69, respiratory rate 20, satting 91% on room air. LABORATORY DATA: CBC with a white blood cell count of 9.4, hemoglobin 12.7, hematocrit 38.6, platele ts 165. Chemistry with sodium 139, potassium 4.0, chloride 107, carbon dioxide 24, BUN 11, creatinin e 0.65, glucose 109, AST 162, ALT 359, alkaline phosphatase 194, total bilirubin 3.2. ASSESSMENT AND PLAN: The patient is a 57-year-old female with past medical history of hyperlipidemia , impaired fasting glucose and morbid obesity, presenting with cholelithiasis and possible choledocho lithiasis. Choledocholithiasis. The patient presented with a 2 week history of right upper quadrant/midepigastric abdominal pain that had been constant in nature with waxing and waning severity. Upon evaluation by the [facility], she was noted to have significantly elevated liver function tests and lipase concerning for gallstone pancreatitis. Right upper quadrant ultrasound did not yield a diagnosis of choledocholithiasis, but a followup CT scan did show a common bile duct of 1.2 cm with multiple filling defects. ERCP perfor med on 05/31/2017 showed a dilated common bile duct, but with balloon sweep of the CBD did not yield any discernible stone. However, labs overnight appear much better in terms of her liver function ovi ts indicating that a possible obstruction has been relieved, albeit it was not seen on ERCP. RECOMMENDATIONS: 1. We will continue patient on Zosyn as part of antibiotic prophylaxis. 2. Would defer to General Surgery for cholecystectomy and possible intraoperative cholangiogram. We will sign off at this time. Please reconsult with any additional questions.
[2017-06-01] MEDS ORDERED: Lidocaine 1% PF 5 ML VIAL ONE (13:26)
[2017-06-01] MEDS ORDERED: ePHEDrine/0.9% NaCl/PF SYRINGE 50 mg/10 ml ONE (13:26)
[2017-06-01] MEDS ORDERED: Dexamethasone 20 MG/5 ML VIAL ONE (13:26)
[2017-06-01] MEDS ORDERED: Ketorolac Tromethamine 30 MG/ML VIAL ONE (13:26)
[2017-06-01] MEDS ORDERED: PROPOFOL 200 MG/20 ML VIAL ONE (13:26)
[2017-06-01] MEDS ORDERED: Glycopyrrolate 0.2 MG/ML 5 ML SYRINGE ONE (13:26)
[2017-06-01] MEDS ORDERED: Ondansetron HCl/PF 4 MG/2 ML Vial ONE (13:26)
[2017-06-01] MEDS ORDERED: PHENYLEPHRINE-NS 100 MCG/ML 10 ML SYRINGE ONE (13:26)
[2017-06-01] MEDS: Meperidine HCl/PF 25 MG/ML VIAL SLOW IVP PRN (13:36)
[2017-06-01] MEDS ORDERED: Iothalamate Meglumine 60% 50 ML VIAL FS ONE (13:38)
[2017-06-01] MEDS ORDERED: Bupivacaine 0.25% HCL 30 ML VIAL ONE (13:38)
--- NOTE | 2017-06-01 13:52 | PRG ---
DATE OF SERVICE: 06/01/2017 SUBJECTIVE: Ms. Dumont is a morbidly obese woman who was admitted on 05/30/2017 with acute cholecys titis with cholelithiasis and choledocholithiasis as well as acute gallstone pancreatitis. The patient underwent ERCP yesterday with sphincterotomy. No common bile duct stones were identified . Overnight, the patient has done well. Currently, denies any abdominal pain, nausea or vomiting. She denies any fevers or chills. I am seeing her today on behalf of Dr. Messer who previously consulted with the patient. OBJECTIVE: VITAL SIGNS: Include blood pressure 129/61, pulse 82, respiratory rate 20, maximum temperature in th e last 24 hours is 99.2 degrees Fahrenheit. Oxygen saturation is 91% on room air. HEENT: Reveals normocephalic and atraumatic. The pupils are equal, round, and reactive to light and accommodation. She has no sclerae icterus present. HEART: Reveals regular rate and rhythm, no murmurs or gallops auscultated. CHEST: Clear to auscultation bilaterally. Her breathing is regular and unlabored. ABDOMEN: Soft and obese. She has a reducible umbilical hernia defect present. She has no gross darwin ound tenderness present. Liver and spleen remain nonpalpable below costal margins. NEUROLOGIC: Reveals no focal deficits present. LABORATORY DATA: Today includes a CBC with 9400 white blood cells, hemoglobin and hematocrit stable at 12.7 and 38.6 respectively. Platelet count is 165,000. Metabolic profile: Sodium 139, potassium is 4.0, chloride is 107, bicarbonate is 24, BUN 11, creatin ine 0.65, glucose 109. AST and ALT stable at 162 and 359 respectively. Alkaline phosphatase is decr easing at 194. Serum lipase which was previously 2715 yesterday is now noted at 140. IMPRESSION: 1. Acute cholecystitis with cholelithiasis. 2. Resolved choledocholithiasis. 3. Resolved acute gallstone pancreatitis. 4. Non-incarcerated umbilical hernia. PLAN: 1. Laparoscopic cholecystectomy with intraoperative cholangiogram. 2. Repair of umbilical hernia. Both findings and plan discussed with the patient who indicates understanding of the information give n. The patient has requested that no mesh be used in the operative repair of the umbilical hernia. I have advised her of the risks and benefits of the proposed surgeries, therefore. The risks include , but not limited to bleeding, infection, injury to bile duct or surrounding structures. Additionally without mesh repair the risk of recurrence on the umbilical hernia is high, especially g iven the patient's habitus. The patient indicates understanding of this information and has given consent for this surgical inter vention. Today's visit was conducted in the presence of the patient's nurse.
[2017-06-01] MEDS ORDERED: Fentanyl 100 MCG/2 ML VIAL ONE ×3 (14:37→17:46)
[2017-06-01] MEDS ORDERED: Bupivacaine/Epinephrine 0.25% 30 ML VIAL ONE (15:18)
[2017-06-01] MEDS ORDERED: Morphine Sulfate 2 MG/ML SYRINGE SLOW IVP PRN (16:38)
[2017-06-01] MEDS ORDERED: Promethazine HCl 25 MG/ML VIAL SLOW IVP PRN (16:38)
[2017-06-01] MEDS ORDERED: Meperidine HCl/PF 25 MG/ML VIAL SLOW IVP PRN (16:38)
[2017-06-01] MEDS ORDERED: HYDROmorphone 2 MG/ML VIAL SLOW IVP PRN (16:38)
[2017-06-01] MEDS ORDERED: Meperidine HCl/PF 25 MG/ML VIAL ONE (17:48)
[2017-06-01] MEDS ORDERED: traMADol HCl 50 MG TAB PO PRN ×2 (18:06)
--- NOTE | 2017-06-01 18:08 | RAD ---
EXAM: INTRAOPERATIVE CHOLANGIOGRAM 06/01/17 EXPOSURE: 8.53 mGy. 20 milliseconds. COMPARISON: None. FINDINGS: Three intraoperative fluoroscopic images are submitted for interpretation. There is cannulation of th e cystic duct remnant. Contrast opacifies a normal caliber intra and extrahepatic biliary system. Pas mathew of contrast into the small bowel. IMPRESSION: Fluoroscopy as above. POS: EDUARDO
[2017-06-01] MEDS ORDERED: Ketorolac Tromethamine 30 MG/ML VIAL IVP SCH (18:15)
--- NOTE | 2017-06-01 19:20 | OP ---
DATE OF OPERATION: 06/01/2017 PREOPERATIVE DIAGNOSES: 1. Acute cholecystitis and cholelithiasis. 2. Status post gallstone pancreatitis. 3. Umbilical hernia. POSTOPERATIVE DIAGNOSES: 1. Acute cholecystitis and cholelithiasis. 2. Status post gallstone pancreatitis. 3. Umbilical hernia. PROCEDURES PERFORMED: 1. Laparoscopic cholecystectomy with intraoperative cholangiogram. 2. Repair of umbilical hernia. SURGEON: Sebastian Granados D.O. ANESTHESIA: General endotracheal. ESTIMATED BLOOD LOSS: 20 mL. FLUIDS GIVEN: 1300 mL crystalloids. SPONGE AND INSTRUMENT COUNT: Certified as correct x2. COMPLICATIONS: None apparent at the time of operation. INDICATIONS FOR PROCEDURE: This is a 57-year-old morbidly obese woman who presented with abdominal p ain. Clinical and radiographic examination was consistent with acute cholecystitis with cholelithias is and probable choledocholithiasis. The patient also has gallstone pancreatitis, which was managed conservatively. Yesterday, she underwent ERCP with sphincterotomy. She is brought to the operating room today for laparoscopic cholecystectomy. Incidentally, she also has an umbilical hernia which we will repair at the same operation. DESCRIPTION OF PROCEDURE: Informed consent obtained from the patient who was brought to the operatin g room and placed in supine position. Following general anesthesia, the abdomen is sterilely prepped and draped in the usual fashion. A curvilinear infraumbilical incision is made using a 15 scalpel. The incision was carried down to the level of the fascia. Umbilical stalk was then dissected off th e fascia. Care was taken to avoid injuries to any viscera that may be tracked within the umbilical h ernia sac. The sac was then dissected off the umbilicus. The apices of the fascia defect were close d using 0 Vicryl suture. Derek port was then placed through the hernia defect into the peritoneal c avity securing this with two stay sutures. The abdomen was then insufflated with 3 liters of CO2 gas . Under laparoscopy, 5 mm epigastric and two 5 mm right lateral subcostal ports were placed after th e overlying skin was infiltrated with 0.25% Marcaine with epinephrine and appropriate incision was ma de. The patient was placed in the reverse Trendelenburg position, rotated to her left. Laparoscopy revealed gallbladder in the usual anatomic location completely encased by omental adhesions. Under l aparoscopy, I introduced [place] dissector from the epigastric port site using this to take down ome ntal adhesions to expose the fundus of the gallbladder. A Prestige grasper was introduced through th e right lateral subcostal port grasping the fundus of the gallbladder which was elevated cephalad. O mental adhesions were then carefully taken down from the remainder of the gallbladder. Cystic duct w as carefully dissected free from surrounding structures at the triangle of Calot. The cystic artery was also dissected free from surrounding structures and divided between clips. I applied two clips p roximally and one clip at the junction of the cystic artery and gallbladder. I then applied one clip at the junction of the cystic duct and gallbladder. I used an EndoShears to partially divide the cy stic duct proximal to the securing clip. I introduced a cholangiocatheter from the right upper quadr ant through a separate stab incision. The catheter was flushed first with saline and then inserted i nto the cystic ductal lumen securing this with one clip. Cholangiogram was completed under fluorosco py using 10 mL of full strength Conray contrast noting a normal ductal anatomy and no filling defects . Total fluoroscopy time was 20 seconds. Once cholangiogram was completed, the securing clip was re moved and the catheter was removed from the peritoneal cavity. The cystic duct was then divided betw een clips, applying two clips proximally. The gallbladder itself was removed from the liver bed usin g cautery with good hemostasis. Gallbladder was delivered off the abdominal cavity using an EndoCatc h. Operative site was inspected for good hemostasis. Finding no other pathology, laparoscopy was te rminated. Fascia of the umbilicus was then reapproximated using interrupted sutures of 0 Vicryl. Um bilical stalk was reattached to tonawanda fascia using interrupted sutures of 3-0 Vicryl. Deep subcutan eous tissues were approximated using interrupted sutures of 3-0 Vicryl. Umbilical incision was appro ximated using a running stitch of 4-0 Monocryl suture in subcuticular fashion. The other port incisi ons were closed using interrupted sutures of 4-0 Monocryl in subcuticular fashion. Dermabond was tesfaye lied to all incisions. The patient tolerated this operation without any apparent complication and wa s returned to the recovery room in satisfactory condition.
[2017-06-01] MEDS: Acetaminophen 325 MG TAB PO PRN (21:27)
[2017-06-01] MEDS: Fish Oil 1,000 MG CAP PO SCH (21:28)
[2017-06-01] MEDS: Atorvastatin Calcium 20 MG TAB PO SCH (21:34)
--- NOTE | 2017-06-01 22:24 | PRG ---
DATE OF SERVICE: 06/01/2017. SUBJECTIVE: Mindi Dumont is a 57-year-old female, postop day 0 status post laparoscopic cholecystecto my. She is somewhat drowsy postoperatively. She vocalizes a feeling of abdominal fullness with some tenderness, but otherwise no complaint. OBJECTIVE: VITAL SIGNS: Reviewed and stable. The patient is afebrile. Resting in bed in no acute distress. B reathing is nonlabored. ABDOMEN: Soft with very mild tenderness to deeper palpation. No guarding or rigidity. No peritonea l signs. ASSESSMENT AND PLAN: As documented in daily progress note. Continue to monitor. Care as ordered. A.m. labs.
[2017-06-01] MEDS ORDERED: Ketorolac Tromethamine 15 MG/ML VIAL IVP SCH (23:59)
[2017-06-02] MEDS: Ketorolac Tromethamine 30 MG/ML VIAL IVP SCH ×2 (00:34→05:13)
[2017-06-02 04:46] LABS: #Lymphocytes 1.3 thou/uL (1.20-3.40); #Monocytes 0.5 thou/uL (0.11-0.59); %Basophils 0.3 % (0.0-1.0); %Eosinophils 0.3 % (0.0-10.0); %Lymphocytes 14.5 % (21.0-51.0); %Monocytes 5.6 % (0.0-10.0); %Neutrophils 79.3 % (42.0-75.0); ALT (SGPT) 332 U/L (8-55); AST (SGOT) 163 U/L (5-34); Albumin 3.3 g/dL (3.5-5.0); Alkaline Phosphatase 185 U/L (40-150); Anion Gap 13 mmol/L (10-20); BUN (Urea Nitrogen) 15 mg/dL (9.8-20.1); Bilirubin, Total 2.2 mg/dL (0.2-1.2); Calc. Creatinine Clearance 201 mL/min (70-130); Calcium 8.7 mg/dL (7.8-10.44); Carbon Dioxide 24 mmol/L (22-29); Chloride 108 mmol/L (98-107); Estimated GFR-MDRD 90; Globulin 3.2 g/dL (2.4-3.5); Glucose 117 mg/dL (70-105); Hemoglobin 11.9 g/dL (12.0-16.0); Lipase 44 U/L (8-78); Mean Corpuscular HGB CONC 31.7 g/dL (32.0-36.0); Mean Corpuscular Hemoglobin 30.4 pg (27.0-31.0); Mean Platelet Volume 8.5 fL (7.4-10.4); Phosphorus 3.8 mg/dL (2.3-4.7); Platelet Count 207 thou/uL (130-400); Potassium 4.6 mmol/L (3.5-5.1); Protein, Total 6.5 g/dL (6.0-8.3); RBC Distribution Width 14.7 % (11.5-14.5); Red Blood Cell (RBC) Count 3.93 mill/uL (4.20-5.40); Sodium 140 mmol/L (136-145); White Blood Cell (WBC) Count 8.8 thou/uL (4.8-10.8)
[2017-06-02] MEDS: Sodium Chloride 0.9% 1,000 ML IV SCH (05:10)
[2017-06-02] MEDS: Piperacillin/Tazobactam 4.5 GM in Sodium Chloride 0.9% 100 ML IVPB SCH ×2 (05:10→16:44)
[2017-06-02] MEDS: Acetaminophen 325 MG TAB PO PRN (05:13)
[2017-06-02 07:47] VITALS: BP 113/59; TEMP 98.2
[2017-06-02] MEDS: Enoxaparin Sodium 40 MG/0.4 ML SYRINGE SC SCH (08:06)
[2017-06-02] MEDS: Famotidine/PF 20 mg/2ml Vial SLOW IVP SCH (08:06)
[2017-06-02] MEDS: Amlodipine 10 MG TAB PO SCH (08:14)
[2017-06-02] MEDS: Metoprolol Tartrate 25 MG TAB PO SCH (08:14)
--- NOTE | 2017-06-02 11:14 | PRG ---
DATE OF SERVICE: 06/02/2017 SUBJECTIVE: Ms. Dumont is a 57-year-old morbidly obese woman who is postoperative day #1, status po st laparoscopic cholecystectomy with normal intraoperative cholangiogram. Postop day #1, she is ambu lating with minimal difficulty. She reports adequate pain control with oral analgesics. She is tole rating clear liquid diet. Urine output has been adequate. OBJECTIVE: VITAL SIGNS: Today includes blood pressure 113/59, pulse 73, respiratory rate is 16, maximum tempera ture since yesterday is 98.2 degrees Fahrenheit, and oxygen saturation 97% on room air. HEENT: Examination reveals normocephalic and atraumatic. Pupils are equal, round, reactive to light and accommodation. She has no sclerae icterus present. HEART: Reveals regular rate and rhythm. No murmurs or gallops auscultated. LUNGS: Clear to auscultation bilaterally. Breathing is regular and unlabored. ABDOMEN: Soft and obese. Incisions remain intact, clean, and dry. She has incisional tenderness to palpation, no gross rebound tenderness. NEUROLOGIC: Examination reveals no focal deficits present. LABORATORY DATA: Pertinent laboratory findings today includes CBC with 8,800 white blood cells, hemo globin and hematocrit are stable at 11.9 and 37.7 respectively. Platelet count is normal at 207,000. Metabolic profile: Sodium 140, potassium 4.6, chloride is 108, bicarbonate is 24, BUN 15, creatini ne 0.67, and glucose 117. AST and ALT are stable at 163 and 332 respectively. Alkaline phosphatase is 185. Total bilirubin is decreasing now at 2.2, lipase is normal at 44. IMPRESSION AND PLAN: Postoperative day #1 status post laparoscopic cholecystectomy. The patient is hemodynamically stable. Transaminases are normalizing. Pancreatitis has resolved. The patient is a dvised to advance her diet as tolerated. She may be discharged from the hospital from a surgery [facility] and follow up with me in the Surgery Clinic in 2 weeks. She is to follow up with her primary care physician in consideration for weight loss plan. She may call me with any questions or problems including exacerbation of abdominal pain, intolerance to oral intake or any onset of jaundice. The patient indicates understanding of information provided her in the presence of her nurse. I have ans wered all of her questions.
--- NOTE | 2017-06-02 12:03 | PDOC.PN ---
- Subjective Encounter Start Date: 06/02/17 Encounter Start Time: 09:00 Subjective: feels better, no sob - Objective Resuscitation Status: Resuscitation Status FULL:Full Resuscitation MAR Reviewed: Yes Vital Signs & Weight: Vital Signs (12 hours) Temp Pulse Resp BP Pulse Ox 06/02/17 08:14 73 06/02/17 08:10 98.2 F 73 16 97 06/02/17 07:20 98.2 F 73 16 113/59 L 97 06/02/17 04:47 98.1 F 63 18 122/61 95 06/02/17 00:30 97.8 F 80 18 128/57 L 97 Weight Admit Weight 307 lb Weight 307 lb I&O: 06/01/17 06/02/17 06/03/17 06:59 06:59 06:59 Intake Total 1350 3700 Output Total 500 1600 Balance 850 2100 Result Diagrams: 06/02/17 04:00 06/02/17 04:00 Additional Labs: Accuchecks 06/02/17 06/02/17 06/02/17 11:24 05:20 00:52 POC Glucose 108 102 114 H 06/01/17 06/01/17 19:11 12:03 POC Glucose 159 H 93 Phys Exam - Physical Examination HEENT: PERRLA, moist MMs Neck: no JVD, supple Respiratory: no wheezing, no rales Cardiovascular: RRR, no significant murmur Gastrointestinal: soft, no distention, positive bowel sounds Musculoskeletal: no edema, pulses present Neurological: non-focal, moves all 4 limbs Psychiatric: normal affect, A&O x 3 Dx/Plan (1) Choledocholithiasis with acute cholecystitis Code(s): K80.42 - CALCULUS OF BILE DUCT W ACUTE CHOLECYSTITIS W/O OBSTRUCTION Status: Acute Comment: s/p ERCP with extraction and sphincterotomy 05/31/2017, s /p lap cholecystectomy with umbilical hernia repair 06/01/17 (2) Gallstone pancreatitis Code(s): K85.10 - BILIARY ACUTE PANCREATITIS WITHOUT NECROSIS OR INFECTION Status: Acute (3) Obesity Code(s): E66.9 - OBESITY, UNSPECIFIED Status: Chronic Qualifiers: Body mass index: BMI 50.0-59.9 (4) HTN (hypertension) Code(s): I10 - ESSENTIAL (PRIMARY) HYPERTENSION Status: Chronic Qualifiers: Hypertension type: essential hypertension Qualified Code(s): I10 - Essential (primary) hypertension (5) Dyslipidemia Code(s): E78.5 - HYPERLIPIDEMIA, UNSPECIFIED Status: Acute - Plan hemostable -: may dc home per surg advice -: to f/u with as adv * .
[2017-06-02] MEDS: Ibuprofen 600 MG TAB PO SCH ×2 (12:44→17:50)
--- NOTE | 2017-06-03 21:12 | DIS ---
DATE OF ADMISSION: 05/30/2017 DATE OF DISCHARGE: 06/02/2017 DISCHARGE DISPOSITION: To home. PRIMARY DISCHARGE DIAGNOSES: Gallstone pancreatitis, status post endoscopic retrograde cholangiopanc reatography with sphincterotomy and extraction of stones, acute cholecystitis with cholelithiasis sta tus post laparoscopic cholecystectomy. SECONDARY DISCHARGE DIAGNOSES: Obesity, hypertension, and dyslipidemia. PROCEDURES DONE DURING HOSPITALIZATION: The patient has had abdominal and pelvic CAT scan done on , which showed cholelithiasis, dilatation of CBD due to extensive choledocholithiasis, minima l inflammatory change of the proximal pancreas. She has had ERCP done on 05/31/[address] Jorje junior with dilatation of CBD with multiple balloon sweeps. She has had sphincterotomy done as well. L aparoscopic cholecystectomy with repair of umbilical hernia was done on 06/01/[address] Granados. She also had intraoperative cholangiogram done on the same setting. Discharge H&H 11 and 37, platelet c ount 207. Discharge AST 163 with admitting numbers of 334, discharge ALT 332 with admitting 541. To ovidio bilirubin 2.2 on the day of discharge with admitting number of 7.7, albumin 3.3. Lipase was 44 o n the day of discharge with admitting number of [id number]. Acute hepatitis panel was negative. DISCHARGE MEDICATIONS: Motrin p.r.n. for pain, atorvastatin 20 mg p.o. at bedtime, Norvasc 10 mg p.o . daily, and fish oil 1000 mg p.o. daily. ALLERGIES: Allergic to CONTROL PILLS. DISCHARGE PLAN: Patient to follow up with Dr. Granados as advised and primary care physician in 1 week. BRIEF COURSE DURING HOSPITALIZATION: The patient initially got admitted on 05/30/2017 with complaint s of right upper quadrant abdominal pain for the last 2 weeks off and on. She had also loss of appet ite and was dehydrated from dry heaving. Her initial lipase was 5466 with total bilirubin of 7.7 and elevated [address]s. A CT of the abdomen and pelvis with contrast done showed gallstone pancreatitis with choledocholithiasis and cholecystitis. She has had consultation with Dr. Jorje Hernández and has had E DIVE MASTER done with extraction of CBD stones and sphincterotomy. Subsequently, patient has had laparoscopi c cholecystectomy with repair of umbilical hernia done by Dr. Granados on the 06/01/2017. Post these pr ocedures, LFTs are all trending downwards. She is free of abdominal pain. She is tolerating oral so lid food. The patient has been cleared by Dr. Granados for discharge. She needs to follow up with [facility] physician in one week and Dr. Granados as advised. Please see a [id number] documentation for the day of discharge on [facility].
== END 2017-06-02 18:43 | disposition home or self-care (01) | DRG 418 ==
LOC: ERS 13:46 → 3SE 18:49 → ONC 05-31 18:26
PROVIDERS: ADMIT Internal Medicine; ATTEND Internal Medicine
PROC: 0F798ZZ Dilation of Common Bile Duct, Via Natural or Artificial Opening Endoscopic (ICD-10-PCS; 2017-05-31)
PROC: 0FC98ZZ Extirpation of Matter from Common Bile Duct, Via Natural or Artificial Opening Endoscopic (ICD-10-PCS; 2017-05-31)
PROC: 0FT44ZZ Resection of Gallbladder, Percutaneous Endoscopic Approach (ICD-10-PCS; principal; 2017-06-01)
PROC: 0WQF0ZZ Repair Abdominal Wall, Open Approach (ICD-10-PCS; 2017-06-01)
PROC: BF130ZZ Fluoroscopy of Gallbladder and Bile Ducts using High Osmolar Contrast (ICD-10-PCS; 2017-06-01)
DX: K85.10 Biliary acute pancreatitis without necrosis or infection (principal); K80.42 Calculus of bile duct with acute cholecystitis without obstruction; E66.01 Morbid (severe) obesity due to excess calories; Z68.43 Body mass index [BMI] 50.0-59.9, adult; K42.9 Umbilical hernia without obstruction or gangrene; Z87.891 Personal history of nicotine dependence; I10 Essential (primary) hypertension; E78.5 Hyperlipidemia, unspecified
CPT/HCPCS: 36415; 36416; 47532; 74177; 76000; 76705; 80048; 80053; 80061; 80074; 80076; 80307; 81003; 81015; 82248; 83690; 83735; 84100; 85025; 85610; 85730; 88304; 96361; 96374; 96375; 96376; A4216; C1769; J1100; J1610; J1650; J1885; J2001; J2175; J2250; J2405; J2543; J2704; J3010; J7050; Q9961; S0020; S0028